=== PATIENT | female | born 1970 | race Caucasian/White ===

== ENCOUNTER 2018-07-05 14:23 | Emergency (ER) | payer MEDICARE, OTHER | END 2018-07-05 16:49 | disposition home or self-care (01) | LOC: E/R 14:23 | DX: J45.901 Unspecified asthma with (acute) exacerbation (principal) | CPT/HCPCS: 99283 ==

== ENCOUNTER → 2018-09-14 | Outpatient (CLI) | payer MEDICARE, OTHER | END | disposition home or self-care (01) | LOC: C/S 13:07 | DX: G44.311 Acute post-traumatic headache, intractable (principal); S16.1XXD Strain of muscle, fascia and tendon at neck level, subsequent encounter; X58.XXXD Exposure to other specified factors, subsequent encounter | CPT/HCPCS: 70450; 72040 ==

== ENCOUNTER → 2018-11-14 | Outpatient (CLI) | payer MEDICARE, OTHER | END | disposition home or self-care (01) | LOC: RAD 12:28 | DX: M54.5 Low back pain (principal); M25.562 Pain in left knee; M25.561 Pain in right knee; Z91.81 History of falling | CPT/HCPCS: 72100; 73562-50 ==

== ENCOUNTER 2018-12-12 08:48 | Emergency (ER) | payer MEDICARE, OTHER | END 2018-12-12 09:55 | disposition home or self-care (01) | LOC: FTE 08:48 | DX: I10 Essential (primary) hypertension (principal); J45.909 Unspecified asthma, uncomplicated; E03.9 Hypothyroidism, unspecified; Z87.891 Personal history of nicotine dependence | CPT/HCPCS: 99282 ==